=== PATIENT | female | born 1945 | race Caucasian/White ===

== ENCOUNTER → 2017-04-10 | Outpatient (CLI) | payer MEDICARE ==
[2016-04-01 16:50] VITALS: BP 160/78
[~2017-04-10] MED LIST: GABA600T2 PO; HYDR-2678 PO; HYDR-971 PO; HYDR200T5 PO; LEFLUNOMIDE20 MG PO; MELO7.5T29 PO; OMEP20CA9 PO; PRED1TAB3 PO; SUCR1TAB PO; TIZA2TAB PO; TOFA5TAB PO
--- NOTE | 2017-04-12 10:20 | KCIC ---
DATE: 04/10/2017 EXAM: MAMMO ABHIJIT SCREENING BILATERAL HISTORY: Routine screening COMPARISON: 03/18/2015 The breast parenchyma shows scattered fibroglandular densities. Breast parenchyma level B. FINDINGS: 2-D and 3-D tomosynthesis imaging was performed in CC and MLO projections. No new or enlarging breast densities are seen. Benign type calcifications are present in both breasts. No suspicious microcalcifications have developed. IMPRESSION: Stable mammograms without evidence of malignancy. BI-RADS CATEGORY: 2 BENIGN FINDING(S) RECOMMENDED FOLLOW-UP: 12M 12 MONTH FOLLOW-UP PQRS compliance statement: Patient information was entered into a reminder system with a target due date for the next mammogram. Mammography is a sensitive method for finding small breast cancers, but it does not detect them all and is not a substitute for careful clinical examination. A negative mammogram does not negate a clinically suspicious finding and should not result in delay in biopsying a clinically suspicious abnormality. "Our facility is accredited by the [employer] Mammography Program."
== END | disposition home or self-care (01) ==
LOC: KCIC MAMMO 11:47
PROVIDERS: ATTEND Family Medicine
DX: Z12.31 Encounter for screening mammogram for malignant neoplasm of breast (principal)
CPT/HCPCS: 77063; G0202; 77067

== ENCOUNTER → 2018-05-02 | Outpatient (CLI) | payer MEDICARE ==
[2016-04-01 16:50] VITALS: BP 160/78
--- NOTE | 2018-05-02 14:48 | KCIC ---
Bone densitometry 05/02/2018 1:00 PM Indication: Postmenopausal screening exam. Hyperthyroidism. Rheumatoid arthritis. Comparison Study: None available. Discussion: Bone Densitometry was performed with dual photon absorption of the lumbar spine and left proximal femur Lumbar Spine: Bone average density is 1.098g/cm2 for L1-L4. T-Score is 0.5. Left proximal femur:: Bone average density is 0.746g/cm2. T-Score is -1.6. IMPRESSION: Osteopenia based on decreased bone mineral density, left proximal femur Note: Definitions established by the World Health Organization: Normal: T-score is -1.0 or above. Osteopenia: T-score is between -1.0 and -2.5. Osteoporosis: T-score is -2.5 or below. Electronically signed by: Gonsalo Vásquez MD (05/02/2018 2:45 PM) [id number]
--- NOTE | 2018-05-02 18:23 | KCIC ---
Bilateral digital screening mammograms with 3-D tomosynthesis: Reason for examination: Routine screening. Comparison is made to previous studies dated 04/10/2017 and 03/18/2015. Bilateral mammograms in CC and oblique projections were obtained with 2-D imaging and 3-D tomosynthesis imaging on a Siemens Inspiration unit and reviewed on the workstation. Interpretation was made with the benefit of CAD. The skin and nipples show no abnormalities. No abnormal axillary lymph nodes are seen. The breast parenchyma shows scattered fatty and fibroglandular density. (Breast density: Category B.) There appears to be a small nodular density present centrally in the 12:00 B position of the left breast. Recommend further evaluation with coned compression views and ultrasound. There are no other dominant masses, suspicious calcifications or architectural distortion. Benign calcifications are present. Impression: Small nodular density developing centrally in the 12:00 B position of the left breast. Recommend further evaluation with coned compression views and ultrasound. BI-RAD Category 0: Incomplete. Needs additional imaging evaluation. "Our facility is accredited by the [employer]ammography [employer]." This patient's information has been entered into a reminder system for the patient to be notified with the results of her examination and a target date for the next mammogram. Electronically signed by: Loretta Ga MD (05/02/2018 6:20 PM) [id number]
== END | disposition home or self-care (01) ==
LOC: KCIC DEXA 12:41
PROVIDERS: ATTEND Family Medicine
DX: Z12.31 Encounter for screening mammogram for malignant neoplasm of breast (principal); Z13.820 Encounter for screening for osteoporosis; N63.21 Unspecified lump in the left breast, upper outer quadrant; M85.88 Other specified disorders of bone density and structure, other site; E05.80 Other thyrotoxicosis without thyrotoxic crisis or storm
CPT/HCPCS: 77063; 77067; 77080

== ENCOUNTER → 2018-05-17 | Outpatient (CLI) | payer MEDICARE ==
[2016-04-01 16:50] VITALS: BP 160/78
--- NOTE | 2018-05-17 16:43 | KCIC ---
Left breast diagnostic digital mammograms: Reason for examination: Nodular density on screening mammogram. Comparison is made to mammographic exam dated 05/02/2018. Coned compression views were obtained in CC and oblique projections. Some nodularity appears persistent and the subareolar 12:00 position. Further evaluation with ultrasound will follow. IMPRESSION: Subtle nodularity persists in the 12:00 position anteriorly. Ultrasound to follow. BI-RADS Category 0: Incomplete. Needs additional imaging evaluation. Left breast ultrasound: Left whole breast ultrasound including evaluation of all 4 quadrants and the retroareolar and axillary regions of the left breast was performed. In the 12:00 position 4 cm from the nipple, there is a 5.8 mm hypoechoic lesion consistent with benign fibrocystic lesion. No other cystic or solid lesions are seen. No abnormal appearing lymph nodes are seen in the axilla. IMPRESSION: 5.8 mm fibrocystic lesion at the 12:00 position. This has a benign appearance but recommend reevaluation with ultrasound in 6 months. BI-RADS Category 3: Probably Benign. "Our facility is accredited by the [employer] Mammography Program." This patient's information has been entered into a reminder system for the patient to be notified with the results of her examination and a target date for the next mammogram. Electronically signed by: Loretta Ga MD (05/17/2018 4:40 PM) [id number]
== END | disposition home or self-care (01) ==
LOC: KCIC MAMMO 08:50
PROVIDERS: ATTEND Family Medicine
DX: N64.89 Other specified disorders of breast (principal); N60.02 Solitary cyst of left breast; R92.8 Other abnormal and inconclusive findings on diagnostic imaging of breast
CPT/HCPCS: 76641; 77065

== ENCOUNTER → 2019-01-09 | Outpatient (CLI) | payer MEDICARE ==
[2016-04-01 16:50] VITALS: BP 160/78
[~2019-01-09] MED LIST changes: -GABA600T2 PO; +GABA600T7 PO; +HYDR-3164 PO; -HYDR-971 PO; +OMEP20CA10 PO; -OMEP20CA9 PO
--- NOTE | 2019-01-09 11:08 | KCIC ---
Left breast ultrasound: Reason for examination follow-up nodule. Comparison is made to previous study dated 05/17/2018. Left whole breast ultrasound was performed with attention to the area of previous sonographic concern and the axilla. At the 12:00 position 4 cm from the nipple, there continues to be 5.1 mm hypoechoic circumscribed lesion in parallel orientation. This does not show significant interval change. No other cystic or solid lesions are seen. No abnormal appearing lymph nodes are seen in the axilla. IMPRESSION: Small circumscribed nodule persists at the 12:00 position and appears to be stable. No suspicious abnormalities are seen. Recommend reevaluation in 6 months with ultrasound performed at the time of bilateral mammograms. BI-RADS Category 3: Probably Benign. "Our facility is accredited by the [employer] Mammography [employer]." This patient's information has been entered into a reminder system for the patient to be notified with the results of her examination and a target date for the next mammogram. Electronically signed by: Loretta Ga MD (01/09/2019 11:05 AM) [id number]
== END | disposition home or self-care (01) ==
LOC: KCIC US 10:38
PROVIDERS: ATTEND Family Medicine
DX: N63.21 Unspecified lump in the left breast, upper outer quadrant (principal); N64.89 Other specified disorders of breast
CPT/HCPCS: 76641

== ENCOUNTER → 2019-06-03 | Outpatient (CLI) | payer MEDICARE ==
[2016-04-01 16:50] VITALS: BP 160/78
[~2019-06-03] MED LIST changes: +LEFL10TA13 PO; -LEFLUNOMIDE20 MG PO; +OMEP-229 PO; -OMEP20CA10 PO; -TIZA2TAB PO; +TIZA2TAB2 PO
--- NOTE | 2019-06-03 18:33 | KCIC ---
Bilateral digital screening mammograms with 3-D tomosynthesis: Reason for examination: 6 month follow-up of left breast. Routine evaluation of the right breast. Comparison is made to previous studies dated 05/17/2018 05/02/2018 and 04/10/2017 Bilateral mammograms in CC and oblique projections were obtained with 2-D imaging and 3-D tomosynthesis imaging on a Siemens Inspiration unit and reviewed on the workstation. Interpretation was made with the benefit of CAD. The skin and nipples show no abnormalities. No abnormal axillary lymph nodes are seen. The breast parenchyma shows scattered fatty and fibroglandular density. (Breast density: Category B.) The nodularity seen anteriorly in the left breast appears to have improved. There is some subtle nodularity suggested posterior and inferiorly in the right breast on oblique view. This will be further evaluated with ultrasound. There are no other new dominant masses, suspicious calcifications or architectural distortion. Benign calcifications are present. Impression: No improvement in the nodularity seen in the left breast. Subtle nodularity suggested posterior and inferiorly in the right breast on oblique view. Ultrasound to follow. BI-RADS Category 0: Incomplete. Needs additional imaging evaluation. Bilateral breast ultrasound: Comparison is made to previous study dated 01/09/2019. Bilateral breast ultrasound including the axillary regions of both breasts was performed. No discrete nodule is seen in the inferior right breast. No abnormal appearing lymph nodes are seen in the right axilla. The nodular density seen previously in the left breast at the 12:00 position has resolved. There are no new cystic or solid nodules. No abnormal appearing lymph nodes are seen in the axilla. IMPRESSION: No nodules seen in either breast. No abnormal lymph nodes in the axilla. Recommend routine mammographic follow-up. BI-RADS Category 2: Benign. "Our facility is accredited by the [employer] Mammography [employer]." This patient's information has been entered into a reminder system for the patient to be notified with the results of her examination and a target date for the next mammogram. Electronically signed by: Loretta Ga MD (06/03/2019 6:30 PM) [id number]
== END | disposition home or self-care (01) ==
LOC: KCIC MAMMO 12:43
PROVIDERS: ATTEND Family Medicine
DX: R92.1 Mammographic calcification found on diagnostic imaging of breast (principal)
CPT/HCPCS: 76641; 77066; G0279; 77062

== ENCOUNTER → 2020-05-04 | Outpatient (CLI) | payer MEDICARE ==
[2016-04-01 16:50] VITALS: BP 160/78
[~2020-05-04] MED LIST changes: -OMEP-229 PO; +OMEP20CA16 PO; -TIZA2TAB2 PO; +TIZA2TAB4 PO
--- NOTE | 2020-05-04 13:10 | KCIC ---
CT LOW DOSE LUNG SCREENING INDICATION: Reason: Lung cancer screening. Past smoker of 40 yrs., 1pk/day, quit 14 yrs. ago. / Spl. Instructions: / History: . COMPARISON STUDY: None. TECHNIQUE: Unenhanced axial images were obtained through the lungs and upper abdomen using low dose technique. Coronal and sagittal multiplanar reformatted images were also obtained. PQRS compliance statement: One or more of the following individualized dose reduction techniques were utilized for this examination: 1. Automated exposure control 2. Adjustment of the mA and/or kV according to patient size 3. Use of iterative reconstruction technique FINDINGS: Lung Nodules: No suspicious pulmonary nodules. Lungs and Airways: No pulmonary mass or consolidation. Normal central airways. Pleura: Normal pleural spaces. Heart and Mediastinum: The visualized portions of the thyroid gland are normal in size and attenuation. No axillary or supraclavicular lymphadenopathy. No mediastinal, hilar or retrocrural lymphadenopathy. Normal cardiac size. No pericardial effusion. Coronary artery atherosclerotic disease. Atherosclerosis of the thoracic aorta and branch vessels. Abdomen: The visualized abdominal organs demonstrate no abnormality. Bones and Soft Tissues: Degenerative changes spine. IMPRESSION: No suspicious pulmonary nodules Lung-RADS Category: 1 Management Recommendation: Follow up low-dose chest CT in one year. Electronically signed by: Keith Soto MD (05/04/2020 1:07 PM) [id number]
--- NOTE | 2020-05-04 16:09 | KCIC ---
Bilateral digital screening mammograms with 3-D tomosynthesis: Reason for examination: Routine screening. Comparison is made to previous studies dated back to 04/10/2017. Bilateral mammograms in CC and oblique projections were obtained with 2-D imaging and 3-D tomosynthesis imaging on a Siemens Inspiration unit and reviewed on the workstation. Interpretation was made with the benefit of CAD. The skin and nipples show no abnormalities. No abnormal axillary lymph nodes are seen. The breast parenchyma shows scattered fatty and fibroglandular density. (Breast density: Category B.) There continued be small nodular parenchymal asymmetries bilaterally which are stable. There are are scattered benign-appearing calcifications seen. There are no new dominant masses, suspicious calcifications or architectural distortion. Impression: No evidence of malignancy. Recommend routine screening. BI-RAD Category 2: Benign. "Our facility is accredited by the [employer] Mammography Program." This patient's information has been entered into a reminder system for the patient to be notified with the results of her examination and a target date for the next mammogram. Electronically signed by: Loretta Ga MD (05/04/2020 4:06 PM) [id number]
== END ==
LOC: KCIC CT 09:39
PROVIDERS: ATTEND Family Medicine
DX: Z12.31 Encounter for screening mammogram for malignant neoplasm of breast (principal); Z12.2 Encounter for screening for malignant neoplasm of respiratory organs; Z87.891 Personal history of nicotine dependence; I70.0 Atherosclerosis of aorta
CPT/HCPCS: 77063; 77067; G0297